=== PATIENT | female | born 1965 | race Caucasian/White ===

== ENCOUNTER 2023-10-19 23:34 | Emergency (ER) | payer BC, OTHER ==
[~2023-10-19] VITALS: Ht 162.6 cm; Wt 54.4 kg
[2023-10-19] MEDS ORDERED: LEVSOD88 (23:52)
[2023-10-19 23:57] LABS: BASOPHILS ABSOLUTE AUTO 0.05 K/mm3 (0.00-0.23); BASOPHILS PERCENT AUTO 1 % (0-2); EOSINOPHILS ABSOLUTE AUTO 0.11 K/mm3 (0.00-0.68); EOSINOPHILS PERCENT AUTO 2 % (0-6); Hematocrit 45.2 % (33.0-51.0); Hemoglobin 15.2 g/dL (11.5-16.0); IMMATURE GRAN ABSOLUTE AUTO 0.01 K/mm3 (0.00-0.10); IMMATURE GRAN PERCENT AUTO 0 % (0-1); LYMPHOCYTES ABSOLUTE AUTO 2.15 K/mm3 (0.84-5.20); LYMPHOCYTES PERCENT AUTO 33 % (21-46); MONOCYTES ABSOLUTE AUTO 0.47 K/mm3 (0.16-1.47); MONOCYTES PERCENT AUTO 7 % (4-13); Mean Corpuscular HGB Conc 33.6 g/dL (31.5-36.5); Mean Corpuscular Volume 98 fL (80-100); Mean Platelet Volume 9.9 fL (9.1-12.4); NEUTROPHILS ABSOLUTE AUTO 3.68 K/mm3 (1.96-9.15); NEUTROPHILS PERCENT AUTO 57 % (41-73); Platelet Count 240 K/mm3 (150-400); RDW Coefficient Variation 12.4 % (11.7-14.2); RDW Standard Deviation 45.1 fL (35.1-46.3); Red Blood Cell Count 4.61 M/mm3 (3.80-5.20); White Blood Cell Count 6.47 K/mm3 (4.00-11.30)
[2023-10-20 00:09] LABS: Albumin, Blood 4.1 g/dL (3.4-5.0); Albumin/Globulin Ratio 1.3 (0.8-1.8); Bilirubin, Total 1.1 mg/dL (0.1-1.0); Bun/Creatinine Ratio 8.9 (12.0-20.0); Calcium, Blood 9.6 mg/dL (8.5-10.1); Creatinine, Blood 0.79 mg/dL (0.40-1.00); Globulin, Blood 3.1 g/dL (2.2-4.0); Potassium, Blood 3.8 mmol/L (3.5-5.5); Total Protein, Blood 7.2 g/dL (6.4-8.2)
[2023-10-20] MEDS ORDERED: Ondansetron HCl 2 MG / ML 2ML Vial IV ONE (02:30)
[2023-10-20] MEDS ORDERED: Ketorolac Tromethamine 30mg Vial IV ONE (02:30)
[2023-10-20] MEDS ORDERED: CYCL10 PO (06:49)
== END 2023-10-20 06:36 | disposition home or self-care (01) ==
LOC: ER 23:34
PROVIDERS: Student in an Organized Health Care Education/Training Program
DX: S22.31XA Fracture of one rib, right side, initial encounter for closed fracture (principal); M25.551 Pain in right hip; V49.9XXA Car occupant (driver) (passenger) injured in unspecified traffic accident, initial encounter; Y92.410 Unspecified street and highway as the place of occurrence of the external cause
CPT/HCPCS: 70450; 71046; 71260; 73030; 73502; 80053; 85025; 93005; 93010; 96374-59; 96375; 99285-25; J1885; J2405; Q9967